=== PATIENT | female | born 1960 | race Caucasian/White ===

== ENCOUNTER → 2020-06-13 07:53 | Outpatient (CLI) | payer BC, SELFPAY ==
--- NOTE | ~2020-06-13 | MR_ITS ---
EXAMINATION: MR lumbar spine wo con EXAM DATE: 06/13/2020 08:37 INDICATION: Right hip pain down right leg. TECHNIQUE: Multi-sequential, multiplanar MR images of the lumbar spine were obtained without contrast . Sagittal T1, T2, T2 fat saturation images. Axial T2 weighted images. There is no prior study for comparison. FINDINGS: There is mild thoracolumbar disc desiccation. Small Schmorl's nodes at the lower thoracic l evels. The vertebral bodies are aligned in the AP dimension. Lumbar vertebral body and disc heights a re maintained. There are no suspicious marrow signal abnormalities. Level by level evaluation: T12-L1: There is a mild diffuse disc bulge. Facet arthropathy: None. Neural foraminal stenosis: No stenosis. Central canal stenosis: No stenosis. L1-L2: Disc does not extend beyond the endplate margin. Facet arthropathy: Mild. Neural foraminal stenosis: No stenosis. Central canal stenosis: No stenosis. L2-L3: Disc does not extend beyond the endplate margin. Facet arthropathy: Mild. Neural foraminal stenosis: No stenosis. Central canal stenosis: No stenosis. L3-L4: Disc does not extend beyond the endplate margin. Facet arthropathy: Mild. Neural foraminal stenosis: No stenosis. Central canal stenosis: No stenosis. L4-L5: There is a mild diffuse disc bulge. Facet arthropathy: Mild to moderate. Neural foraminal stenosis: Mild left. Central canal stenosis: Mild. L5-S1: There is a mild diffuse disc bulge. Facet arthropathy: Moderate to severe. Neural foraminal stenosis: Mild bilateral. Central canal stenosis: Mild. IMPRESSION: 1. L5-S1 moderate to severe facet arthropathy. 2. Otherwise relatively mild thoracolumbar spondylosis without significant stenosis. Reviewed, dictated and finalized at location A. IMPRESSION: 1. L5-S1 moderate to severe facet arthropathy. 2. Otherwise relatively mild thoracolumbar spondylosis without significant maverick nosis.
== END ==
DX: M51.36 Other intervertebral disc degeneration, lumbar region (principal); M54.31 Sciatica, right side; M47.895 Other spondylosis, thoracolumbar region
CPT/HCPCS: 72148